=== PATIENT | female | born 1975 | race Caucasian/White ===

== ENCOUNTER 2020-07-22 12:08 | Outpatient (CLI) | payer BC | END 2020-07-22 12:09 | disposition home or self-care (01) | LOC: CSHCT 12:08 | PROVIDERS: ATTEND Urology | DX: N20.0 Calculus of kidney (principal); Z96.0 Presence of urogenital implants; K76.0 Fatty (change of) liver, not elsewhere classified | CPT/HCPCS: 74176 ==